=== PATIENT | female | born 1935 | race Caucasian/White ===

== ENCOUNTER 2017-04-16 22:51 | Emergency (ER) | payer MEDICARE, OTHER ==
[~2017-04-16] VITALS: Ht 152.4 cm; Wt 68.9 kg
[~2017-04-16 22:51] MED LIST: ASPIRIN 81MG TA81 MG PO; ATENOLOL50 MG PO; FOLGARD PO; PRAVACHOL 40MG40 MG PO; RANITIDINE HCL150 MG PO; TELMISARTAN PO; [UNRECOGNIZED DRUG - OTHER] PO
[2017-04-16] MEDS ORDERED: AMLO5TAB PO (23:11)
--- NOTE | 2017-04-16 23:23 | Emergency Room Report ---
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 N Clinical Suspician of Infection? N Mental Status: 1 - Regular (Normal Baseline) Sepsis Risk:Low Sepsis Risk Have you (or family members/close friends) recently traveled outside the [place]? N If Yes, where/when: Have you had exposure to infectious disease within the past month? N TB? Other? Specify: Source patient, RN notes reviewed, family, old records Exam Limitations no limitations Comment pt with elevated bp at home despite meds and presents for follow up Cardiac Chest Pain Chest pain indicative of cardiac No Timing/Duration this evening Severity moderate ALLERGIES Coded Allergies: Sulfa (Sulfonamide Antibiotics) (Intermediate, I-RASH 02/18/16) codeine (Intermediate, I-RASH 02/18/16) procaine (From NOVOCAIN) (INCREASED HEART RATE; PALPITATIONS 03/09/16) Home Medications Reported Medications Ranitidine Hcl (Ranitidine 150MG) 150 MG PO BID ATENOLOL (Atenolol 50MG) 100 MG PO DAILY ASPIRIN (Aspirin) 81 MG PO DAILY PRAVASTATIN SODIUM (Pravastatin Sodium) 40 MG PO QHS VIT D3/FOLIC ACID/B2/B6/B12 (Folgard Tablet) 1 TAB PO DAILY TELMISARTAN/HYDROCHLOROTHIAZID (Telmisartan-Hctz 80-25 MG Tab) 1 TAB PO DAILY Amlodipine Besylate (Amlodipine) 5 MG PO DAILY History Medical History General CAD? No Angina: No NE: No Hypertension? Yes Hyperlipidemia? Yes CHF? No DVT? No PE? No COPD? No Asthma? No Anemia? Yes GERD? No Gastric ulcers? Yes GI Bleed? No Hernia? Yes Thyroid Problems? No Hypothyroidism? No CVA? No Seizures? No Diabetes? No Renal Insuffiency? Yes End Stage Renal Disease? No UTI? Yes Stones? No BPH? No GB Disease: No Nephritic Syndrome? No Asplenia? No Hepatitis? No Sickle Cell Disease? No Arthritis? Yes Migraines? No Cataracts? Yes Glaucoma? No MRSA? No HIV? No TB? No Anxiety? Yes Depression? Yes Cancer? No Immunization Hx DT/Tetanus > 10 Years Ago Surgical Hx Previous Surgery?Y APPENDECTOMY HYSTERECTOMY Family History Family Hx Diabetes No Hypertension Yes Hyperlipidemia No Cancer Yes TB No Social History Smoking Hx Smoker: Never Smoker Tobacco: No Are you/the child exposed to second-hand smoke: No Alcohol Alcohol: No Drugs none Review of Systems All Other Systems Reviewed and Negative Constitutional denies fever Eyes denies drainage ENT denies: ear discharge, epistaxis, throat pain. Respiratory denies cough, denies shortness of breath, denies wheezing Cardiovascular denies chest pain, denies syncope Gastrointestinal denies abdominal pain, denies diarrhea, denies vomiting Genitourinary denies: dysuria, frequency, hesitancy, hematuria. Musculoskeletal denies back pain, denies joint pain, denies joint swelling, denies neck pain Skin denies rash Psychiatric/Neurological denies headache, denies seizure Physical Exam Vital Signs Vital Signs Date Time Temp Pulse Resp B/P Pulse O2 O2 Flow FiO2 Ox Delivery Rate 04/17 0146 64 22 140/74 94 04/17 0037 58 22 106/73 94 04/16 2302 98.4 73 22 171/89 97 - WBC >12,000 or <4,000 or 10% bands? 2 or more SIRS Criteria Met? B/P:140/74 MAP:116 Creatinine >2.0? UA output<0.5ml/kg/hr for 2 hrs? Platelet count >100,000? Lactate >2.0mmol/1? INR >1.2 or PTT > than 60 sec? Evidence of Organ Dysfunction? Provider documented clinical suspician of infection? N Sepsis Criteria Count: 1 Sepsis Risk: Low Sepsis Risk General Appearance no apparent distress Eye Exam - bilateral eye PERRL, bilateral eye EOMI Ear, Nose, Throat normal ENT inspection Neck supple Respiratory Status No: respiratory distress. Lung Sounds bilateral: lungs clear. 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 No Results/Orders Laboratory Tests 04/16/172329: Sodium 141, Potassium 4.1, Chloride 106, Carbon Dioxide 29, BUN 42 H, Creatinine 2.1 H, Estimated Creat Clear 23 L, Estimated GFR (MDRD) 23 L, Glucose 112 H, Calcium 8.3 L, Total Bilirubin 0.3, AST 8 L, ALT 15, Alkaline Phosphatase 64, Creatine Kinase 20 L, CK-MB (CK-2) Rel Index 3.5, CK and CKMB Interp 0.7, Troponin I < 0.02, Total Protein 6.4, Albumin 3.3 L, Globulin 3.1, Albumin/Globulin Ratio 1.1, WBC 13.2 H, RBC 4.03 L, Hgb 12.0 L, Hct 37.5, MCV 93.0, RDW 13.0, Plt Count 301, MPV 7.2 L, Gran % 70.7, Gran # 9.3 H, Lymphocytes % 22.8, Monocytes % 5.2, Eosinophils % 1.0, Basophils % 0.3, Lymphocytes # 3.0, Monocytes # 0.7, Eosinophils # 0.1, Basophils # 0.0, PUBS MCHC 31.9, MCH 29.7 Current Medication Orders Sig/Mary Start time Last Medication Dose Route Stop Time Status Admin Sodium Chloride 10 ML PRN PRN 04/16 2345 AC IV 04/17 2333 Orders Procedure Date/time Status 12 LEAD EKG-BESSON (INITIAL) 04/16 2333 Active ELECTROCARDIOGRAM REQUEST 04/16 2333 Active CHEST-PORTABLE 04/16 2333 Active IV SALINE LOCK 04/16 2333 Active CBC WITH AUTO DIFF 04/16 2333 Complete CARDIAC ENZYMES 04/16 2333 Complete CHEM 12 PROFILE 04/16 2333 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 ST/Twave chgs Departure Departure Time of Disposition 0203 Disposition DC Home or Self Care(routine) Clinical Impression Primary Impression: Hypertensive emergency Secondary Impressions: Renal insufficiency Condition STABLE Referrals BEATRIZ GOMEZ (Family) Patient Instructions High Blood Pressure (Hypertension) (Alternative Therapy) Additional Instructions call pcp for follow up Discharge Counseling Counseled pt/family regarding diagnosis, test results, follow up needs ED Critical Care Critical Care No at 0206
--- NOTE | 2017-04-16 23:23 | Emergency Room Report ---
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 N Clinical Suspician of Infection? N Mental Status: 1 - Regular (Normal Baseline) Sepsis Risk:Low Sepsis Risk Have you (or family members/close friends) recently traveled outside the [place]? N If Yes, where/when: Have you had exposure to infectious disease within the past month? N TB? Other? Specify: Source patient, RN notes reviewed, family, old records Exam Limitations no limitations Comment pt with elevated bp at home despite meds and presents for follow up Cardiac Chest Pain Chest pain indicative of cardiac No Timing/Duration this evening Severity moderate ALLERGIES Coded Allergies: Sulfa (Sulfonamide Antibiotics) (Intermediate, I-RASH 02/18/16) codeine (Intermediate, I-RASH 02/18/16) procaine (From NOVOCAIN) (INCREASED HEART RATE; PALPITATIONS 03/09/16) Home Medications Reported Medications Ranitidine Hcl (Ranitidine 150MG) 150 MG PO BID ATENOLOL (Atenolol 50MG) 100 MG PO DAILY ASPIRIN (Aspirin) 81 MG PO DAILY PRAVASTATIN SODIUM (Pravastatin Sodium) 40 MG PO QHS VIT D3/FOLIC ACID/B2/B6/B12 (Folgard Tablet) 1 TAB PO DAILY TELMISARTAN/HYDROCHLOROTHIAZID (Telmisartan-Hctz 80-25 MG Tab) 1 TAB PO DAILY Amlodipine Besylate (Amlodipine) 5 MG PO DAILY History Medical History General CAD? No Angina: No GA: No Hypertension? Yes Hyperlipidemia? Yes CHF? No DVT? No PE? No COPD? No Asthma? No Anemia? Yes GERD? No Gastric ulcers? Yes GI Bleed? No Hernia? Yes Thyroid Problems? No Hypothyroidism? No CVA? No Seizures? No Diabetes? No Renal Insuffiency? Yes End Stage Renal Disease? No UTI? Yes Stones? No BPH? No GB Disease: No Nephritic Syndrome? No Asplenia? No Hepatitis? No Sickle Cell Disease? No Arthritis? Yes Migraines? No Cataracts? Yes Glaucoma? No MRSA? No HIV? No TB? No Anxiety? Yes Depression? Yes Cancer? No Immunization Hx DT/Tetanus > 10 Years Ago Surgical Hx Previous Surgery?Y APPENDECTOMY HYSTERECTOMY Family History Family Hx Diabetes No Hypertension Yes Hyperlipidemia No Cancer Yes TB No Social History Smoking Hx Smoker: Never Smoker Tobacco: No Are you/the child exposed to second-hand smoke: No Alcohol Alcohol: No Drugs none Review of Systems All Other Systems Reviewed and Negative Constitutional denies fever Eyes denies drainage ENT denies: ear discharge, epistaxis, throat pain. Respiratory denies cough, denies shortness of breath, denies wheezing Cardiovascular denies chest pain, denies syncope Gastrointestinal denies abdominal pain, denies diarrhea, denies vomiting Genitourinary denies: dysuria, frequency, hesitancy, hematuria. Musculoskeletal denies back pain, denies joint pain, denies joint swelling, denies neck pain Skin denies rash Psychiatric/Neurological denies headache, denies seizure Physical Exam Vital Signs Vital Signs Date Time Temp Pulse Resp B/P Pulse O2 O2 Flow FiO2 Ox Delivery Rate 04/17 0146 64 22 140/74 94 04/17 0037 58 22 106/73 94 04/16 2302 98.4 73 22 171/89 97 - WBC >12,000 or <4,000 or 10% bands? 2 or more SIRS Criteria Met? B/P:140/74 MAP:116 Creatinine >2.0? UA output<0.5ml/kg/hr for 2 hrs? Platelet count >100,000? Lactate >2.0mmol/1? INR >1.2 or PTT > than 60 sec? Evidence of Organ Dysfunction? Provider documented clinical suspician of infection? N Sepsis Criteria Count: 1 Sepsis Risk: Low Sepsis Risk General Appearance no apparent distress Eye Exam - bilateral eye PERRL, bilateral eye EOMI Ear, Nose, Throat normal ENT inspection Neck supple Respiratory Status No: respiratory distress. Lung Sounds bilateral: lungs clear. 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 No Results/Orders Laboratory Tests 04/16/172329: Sodium 141, Potassium 4.1, Chloride 106, Carbon Dioxide 29, BUN 42 H, Creatinine 2.1 H, Estimated Creat Clear 23 L, Estimated GFR (MDRD) 23 L, Glucose 112 H, Calcium 8.3 L, Total Bilirubin 0.3, AST 8 L, ALT 15, Alkaline Phosphatase 64, Creatine Kinase 20 L, CK-MB (CK-2) Rel Index 3.5, CK and CKMB Interp 0.7, Troponin I < 0.02, Total Protein 6.4, Albumin 3.3 L, Globulin 3.1, Albumin/Globulin Ratio 1.1, WBC 13.2 H, RBC 4.03 L, Hgb 12.0 L, Hct 37.5, MCV 93.0, RDW 13.0, Plt Count 301, MPV 7.2 L, Gran % 70.7, Gran # 9.3 H, Lymphocytes % 22.8, Monocytes % 5.2, Eosinophils % 1.0, Basophils % 0.3, Lymphocytes # 3.0, Monocytes # 0.7, Eosinophils # 0.1, Basophils # 0.0, PUBS MCHC 31.9, MCH 29.7 Current Medication Orders Sig/Mary Start time Last Medication Dose Route Stop Time Status Admin Sodium Chloride 10 ML PRN PRN 04/16 2345 AC IV 04/17 2333 Orders Procedure Date/time Status 12 LEAD EKG-BESSON (INITIAL) 04/16 2333 Active ELECTROCARDIOGRAM REQUEST 04/16 2333 Active CHEST-PORTABLE 04/16 2333 Active IV SALINE LOCK 04/16 2333 Active CBC WITH AUTO DIFF 04/16 2333 Complete CARDIAC ENZYMES 04/16 2333 Complete CHEM 12 PROFILE 04/16 2333 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 ST/Twave chgs Departure Departure Time of Disposition 0203 Disposition DC Home or Self Care(routine) Clinical Impression Primary Impression: Hypertensive emergency Secondary Impressions: Renal insufficiency Condition STABLE Referrals BEATRIZ GOMEZ (Family) Patient Instructions High Blood Pressure (Hypertension) (Alternative Therapy) Additional Instructions call pcp for follow up Discharge Counseling Counseled pt/family regarding diagnosis, test results, follow up needs ED Critical Care Critical Care No at 0202
--- OUTSIDE RECORDS SUMMARY | 2017-04-16 23:27 | External Medical Summary Rpt | CCD ---
Author Author , SOLO GARCIA Address Unknown Phone [email or web address] Purpose Continuity of Care Document - 09-24-2016 through 2016 Problems Code Diagnosis DOS Provider Status Z12.31 ENCOUNTER 01-19-2017 FOR SCREENING MAMMOGRAM FOR MALIGNANT NEOPLASM OF BREAST R52 PAIN, 12-17-2016 UNSPECIFIED R60.9 EDEMA, 12-17-2016 UNSPECIFIED M79.606 PAIN IN 12-15-2016 LEG, UNSPECIFIED M25.549 PAIN IN 09-24-2016 JOINTS OF UNSPECIFIED HAND
--- OUTSIDE RECORDS SUMMARY | 2017-04-16 23:27 | External Medical Summary Rpt | CCD ---
Author Author , SOLO GARCIA Address Unknown Phone [email or web address] Purpose Continuity of Care Document - 09-24-2016 through 2016 Problems Code Diagnosis DOS Provider Status Z12.31 ENCOUNTER 01-19-2017 FOR SCREENING MAMMOGRAM FOR MALIGNANT NEOPLASM OF BREAST R52 PAIN, 12-17-2016 UNSPECIFIED R60.9 EDEMA, 12-17-2016 UNSPECIFIED M79.606 PAIN IN 12-15-2016 LEG, UNSPECIFIED M25.549 PAIN IN 09-24-2016 JOINTS OF UNSPECIFIED HAND
--- OUTSIDE RECORDS SUMMARY | 2017-04-16 23:28 | External Medical Summary Rpt | CCD ---
Author Author [employer] Organization [employer] Address Unknown Phone Unavailable Purpose Continuity of Care Document - through 2016
--- OUTSIDE RECORDS SUMMARY | 2017-04-16 23:28 | External Medical Summary Rpt | CCD ---
Demographics Preferred Language Vietnamese Marital Status Unknown Confucianism Affiliation Unknown Race Unknown Ethnic Group Unknown Author Author , SOLO GARCIA Address Unknown Phone Immunization No patient found.
--- OUTSIDE RECORDS SUMMARY | 2017-04-16 23:28 | External Medical Summary Rpt ---
Author Author JOSE Saldivar, JOSE Saldivar Organization [employer] Address Unknown Phone Unavailable
--- OUTSIDE RECORDS SUMMARY | 2017-04-16 23:28 | External Medical Summary Rpt | CCD ---
Demographics Preferred Language Tristanian Marital Status Unknown Yarsani Affiliation Unknown Race Unknown Ethnic Group Unknown Author Author , SOLO GARCIA Address Unknown Phone Immunization No patient found.
[2017-04-16 23:50] LABS: LYMPH % 22.8 % (10-50.0)
[2017-04-17 00:16] LABS: BUN 42 mg/dL (7-18)
[2017-04-17 00:32] LABS: GFR (ESTIMATED) 23 ML/MIN (59-)
[2017-04-17 02:10] VITALS: BP 140/74
--- NOTE | 2017-04-17 05:31 | RADIOLOGY REPORT PS360 ---
CHEST-PORTABLE HISTORY: HYPERTENSION' ORDERING PHYSICIAN: Clifton Hernandez MD PATIENT AGE: 81 years COMPARISON: None available FINDINGS: There is mild cardiomegaly without failure. Increased density is present in the retrocardiac region in the lower chest. This may be related to either hiatal hernia or even aortic aneurysm.. The lungs are clear without infiltrates, suspicious nodules, or pleural effusions. No acute bony abnormalities. IMPRESSION: Fusiform increased density in the lower chest centrally within the retrocardiac region. Differential diagnosis includes hiatal hernia or aortic aneurysm and may be better evaluated with chest CT. Otherwise negative.
== END 2017-04-17 02:11 | disposition home or self-care (01) ==
LOC: ER 22:51
PROVIDERS: Emergency Medicine
DX: I10 Essential (primary) hypertension (principal); N28.9 Disorder of kidney and ureter, unspecified; F41.8 Other specified anxiety disorders; E78.5 Hyperlipidemia, unspecified; D64.9 Anemia, unspecified; Z88.2 Allergy status to sulfonamides; Z88.6 Allergy status to analgesic agent